=== PATIENT | female | born 1940 | race African-American/Black ===

== ENCOUNTER 2017-07-28 11:27 | Emergency (ER) | payer MEDICARE ==
[~2017-07-28] VITALS: Ht 137.2 cm; Wt 72.6 kg
[2017-07-28 11:30] VITALS: BP 131/66
[2017-07-28] MEDS ORDERED: Morphine Sulfate 4mg/ml Inj IVP ONE (12:00)
--- NOTE | 2017-07-28 12:01 | Emergency Room Report ---
History of Present Illness General Chief Complaint: General Complaint Source: Patient Present Illness HPI Patient presents with complaints of diffuse body ache She reports she had a fall 2 weeks ago Patient reports being seen at [facility] on 2 different occasions Has history of multiple myeloma Has pain management with morphine and Tylenol prescribed for the pain However she feels that it is not well-controlled Denies any fevers or chills denies any chest pain Patient has pain to both of her feet and toes Reports being on Neurontin Allergies: Coded Allergies: PENICILLINS (Verified Allergy, Intermediate, 07/28/17) SULFA (SULFONAMIDE ANTIBIOTICS) (Verified Allergy, Intermediate, 07/28/17) Patient History Past Medical History: see triage record Pertinent Family History: none Now: No Reviewed Nursing Documentation: PMH: Agreed; PSxH: Agreed Nursing Documentation-PMH Hx Hypertension: Yes Hx Cancer: Yes - MULTIPLE MYLOMA Review of Systems All Other Systems: negative except mentioned in HPI Physical Exam Vital Signs Date Time Temp Pulse Resp B/P (MAP) Pulse Ox O2 Delivery O2 Flow Rate FiO2 07/28/17 11:26 97.8 110 16 109/58 98 Room Air 97.9 Sp02 EP Interpretation: reviewed, normal General Appearance: mild distress - In acute pain Head: normocephalic, atraumatic Eyes: bilateral eye PERRL, bilateral eye EOMI ENT: other - Generalized facial edema Neck: supple Respiratory: lungs clear, normal breath sounds Cardiovascular #1: regular rate, rhythm Gastrointestinal: non tender, soft, no mass Musculoskeletal: other - Uncomfortable with any slight touch muscle skeletal exam is difficult however moving both upper extremities without focal deficit, Neurologic: alert, oriented x3, responsive Skin: jaundice Lymphatic: no adenopathy Medical Decision Making Diagnostic Impression: Primary Impression: Hypokalemia Additional Impression: Weakness ER Course Patient is a fairly complex patient with multiple differential to consideration including but not limited to cardiac cardiopulmonary and vascular emergencies Patient provided with IV hydration pain medication There are no signs of any focal deficit requiring emergency Scanning Patient's potassium level however is low This could be contributing to her weakness also the fall Case was discussed with [facility] and patient will be transferred for further care Labs Test 07/28/17 11:56 White Blood Count 6.8 K/UL (4.8-10.8) Red Blood Count 3.98 M/UL (4.20-5.40) Hemoglobin 12.7 G/DL (12.0-16.0) Hematocrit 37.7 % (37.0-47.0) Mean Corpuscular Volume 95 FL (80-99) Mean Corpuscular Hemoglobin 32.1 PG (27.0-31.0) Mean Corpuscular Hemoglobin Concent 33.9 G/DL (32.0-36.0) Red Cell Distribution Width 11.7 % (11.6-14.8) Platelet Count 94 K/UL (150-450) Mean Platelet Volume 10.7 FL (6.5-10.1) Neutrophils (%) (Auto) % (45.0-75.0) Lymphocytes (%) (Auto) % (20.0-45.0) Monocytes (%) (Auto) % (1.0-10.0) Eosinophils (%) (Auto) % (0.0-3.0) Basophils (%) (Auto) % (0.0-2.0) Differential Total Cells Counted 100 Neutrophils % (Manual) 85 % (45-75) Lymphocytes % (Manual) 5 % (20-45) Monocytes % (Manual) 1 % (1-10) Eosinophils % (Manual) 0 % (0-3) Basophils % (Manual) 0 % (0-2) Band Neutrophils 9 % (0-8) Platelet Estimate Decreased Platelet Morphology Normal Red Blood Cell Morphology Normal Sodium Level 143 MMOL/L (136-145) Potassium Level 2.5 MMOL/L (3.5-5.1) Chloride Level 106 MMOL/L (98-107) Carbon Dioxide Level 29 MMOL/L (21-32) Anion Gap 7 mmol/L (5-15) Blood Urea Nitrogen 21 mg/dL (7-18) Creatinine 0.5 MG/DL (0.55-1.30) Estimat Glomerular Filtration Rate mL/min (>60) Glucose Level 184 MG/DL (74-106) Calcium Level 8.0 MG/DL (8.5-10.1) Total Bilirubin 0.9 MG/DL (0.2-1.0) Aspartate Amino Transf (AST/SGOT) 29 U/L (15-37) Alanine Aminotransferase (ALT/SGPT) 38 U/L (12-78) Alkaline Phosphatase 82 U/L (46-116) Total Creatine Kinase 33 U/L (26-308) Creatine Kinase MB 1.8 NG/ML (0.0-3.6) Creatine Kinase MB Relative Index 5.4 Troponin I 0.016 ng/mL (0.000-0.056) Total Protein 5.0 G/DL (6.4-8.2) Albumin 2.0 G/DL (3.4-5.0) Globulin 3.0 g/dL Albumin/Globulin Ratio 0.7 (1.0-2.7) Rhythm Strip Diag. Results EP Interpretation: yes Rate: 67 Rhythm: NSR, no PVC's, no ectopy Chest X-Ray Diagnostic Results Chest X-Ray Diagnostic Results : Chest X-Ray Ordered: Yes # of Views/Limited/Complete: 1 View Indication: Chest Pain EP Interpretation: Yes Interpretation: no consolidation, no effusion, no pneumothorax Impression: No acute disease Electronically Signed by: Susie Geiger DO Last Vital Signs Date Time Temp Pulse Resp B/P (MAP) Pulse Ox O2 Delivery O2 Flow Rate FiO2 07/28/17 11:26 97.8 110 16 109/58 98 Room Air 97.9 Status: improved Disposition: XFER SHT-TRM HOSP Condition: Serious Susie Geiger DO July 28, 2017 12:01
[2017-07-28 12:29] LABS: HEMATOCRIT 37.7 % (37.0-47.0); HEMOGLOBIN 12.7 G/DL (12.0-16.0); MEAN CORPUSCULAR VOLUME 95 FL (80-99); PLATELET COUNT 94 K/UL (150-450); RED BLOOD COUNT 3.98 M/UL (4.20-5.40); RED CELL DISTRIBUTION WIDTH 11.7 % (11.6-14.8); WHITE BLOOD COUNT 6.8 K/UL (4.8-10.8)
[2017-07-28 12:56] LABS: ALANINE AMINOTRANSFERASE 38 U/L (12-78); ALBUMIN/GLOBULIN RATIO 0.7 (1.0-2.7); ALKALINE PHOSPHATASE 82 U/L (46-116); ANION GAP 7 mmol/L (5-15); ASPARTATE AMINO TRANSFERASE 29 U/L (15-37); BILIRUBIN,TOTAL 0.9 MG/DL (0.2-1.0); BLOOD UREA NITROGEN 21 mg/dL (7-18); CARBON DIOXIDE 29 MMOL/L (21-32); CHLORIDE 106 MMOL/L (98-107); CKMB 1.8 NG/ML (0.0-3.6); CREATINE KINASE 33 U/L (26-308); CREATININE 0.5 MG/DL (0.55-1.30); SODIUM 143 MMOL/L (136-145)
[2017-07-28 12:57] LABS: POTASSIUM 2.5 MMOL/L (3.5-5.1)
[2017-07-28 13:21] VITALS: BP 106/54
--- NOTE | 2017-07-28 14:42 | Diagnostic Imaging Report ---
Indication: Chest pain Technique: One view of the chest Comparison: none Findings: Lungs and pleural spaces are clear. Heart size is normal. There is a right chest port catheter in good position. Impression: No acute process
[2017-07-28 15:11] VITALS: BP 103/65
[2017-07-28 15:49] VITALS: BP 103/65
== END 2017-07-28 16:49 | disposition short-term general hospital (02) ==
LOC: EDBD 11:27 → EMR 12:52
DX: E87.6 Hypokalemia (principal); R53.1 Weakness; C90.00 Multiple myeloma not having achieved remission; I10 Essential (primary) hypertension; Z88.0 Allergy status to penicillin; Z88.2 Allergy status to sulfonamides
CPT/HCPCS: 36415; 71045; 80053; 82550; 82553; 84484; 85007; 85025; 93005; 96374; 96375; 99285; J2270; J2405; J8499